=== PATIENT | female | born 1975 | race Caucasian/White ===

== ENCOUNTER → 2020-10-03 13:18 | Outpatient (BNVA) | payer OTHER, SELFPAY | PROVIDERS: PCP Internal Medicine; Referring Provider Internal Medicine; Visit Provider Internal Medicine | DX: I51.7 Cardiomegaly (principal); R00.0 Tachycardia, unspecified | CPT/HCPCS: 99202 ==

== ENCOUNTER → 2020-10-18 09:44 | Outpatient (REF) | payer OTHER, SELFPAY ==
--- NOTE | 2020-10-18 09:48 | CA_ITS ---
Transthoracic Echocardiogram Patient (Last, First, Middle): Ness Gomez, Gender: Female Date of : 1975 Age: 45 Procedure Date: 10/18/2020 Procedure Type: Transthoracic Echocardiogram Location: OP Height: 165.1 cm Weight: 72.58 kg BSA: 1.80 m2 Heart Rate: bpm BP: 125 / 85 mmHg Professor Of Biostatistics: ARMIDA Referring MD: Miguel Angel Moreira MD Symptoms: I51.7 - Cardiomegaly Study Quality: Good ECG Rhythm: Sinus Conclusions: - The left ventricular systolic function is normal. The visually estimated ejection fraction is between 60-65%. - No obvious valvular pathology seen on this study. Findings Left Ventricle Normal left ventricular cavity size. There is normal left ventricular wall thickness. The left ventricular systolic function is normal. The visually estimated ejection fraction is between 60-65%. There is no evidence of regional wall motion abnormalities. Diastolic function is normal for age. Right Ventricle Normal right ventricular cavity size and systolic function. Atria The left atrium is normal in size. The right atrium is normal in size. Aortic Valve There is a normal trileaflet aortic valve. There is no aortic valve stenosis. There is trace (trivial) aortic valve regurgitation. Mitral Valve The mitral valve appears normal. There is trace mitral valve regurgitation. There is no mitral valve stenosis. Pulmonic Valve The pulmonic valve was not well visualized. Tricuspid Valve Normal tricuspid valve structure. There is trace tricuspid valve regurgitation. The pulmonary artery systolic pressure is normal. Great Vessels The aortic annulus, sinuses of valsalva, and asc aorta are normal in size. Venous The inferior vena cava is normal in size and collapses greater than 50% with inspiration. Pericardium/Pleural There is no evidence of pericardial effusion. Prior Study Comparison No prior study available for comparison. Recommendations, Care & Conclusions No obvious valvular pathology seen on this study. Measurements M-Mode Liner Measurements Normals - Women/Men IVSd: 1.04 0.6-0.9/0.6-1.0 cm LVIDd: 4.58 3.9-5.3/4.2-5.9 cm LVIDd Index: 2.54 1.9-3.2 cm/m2 LVIDs: 2.65 2.0-3.8 cm LVPWd: 1.07 0.6-0.9/0.6-1.0 cm LV Mass: 211.48 67-162/88-224g LV Mass Index: 117.49 43-95/49-115 g/m2 M-Mode Volumes LV EDV: 96.30 LV ESV: 25.80 2D Linear Measurements IVSd: 0.82 0.6-0.9/0.6-1.0 cm LVIDd: 3.93 3.9-5.3/4.2-5.9 cm LVIDd Index: 2.18 2.4-3.2/2.2-3.1 cm/m2 LVIDs: 2.52 2.0-3.6 cm LVPWd: 0.79 0.7-1.1 cm Ao Root: 2.90 2.1-3.5 cm LA Diam: 2.80 2.7-3.8/3.0-4.0 cm LAIDs Index: 1.56 1.5-2.3 cm/m2 LV Mass: 113.61 67-162/88-224 g LV Mass Index: 63.12 43-95/49-115 g/m2 LVOT Diam: 2.00 3.0+(-)1.3 cm 2D Systolic Function EF 4C: 67.30 >55% EF 2C: 63.40 >55% EF BiP: 66.00 >55% M-Mode Systolic Function FS: 42.10 27-47/25-43% LVEF: 73.20 >55% Mitral Valve MV Pk E: 0.74 MV PK A: 0.68 MV Decel Time: 158.00 E/A: 1.10 E'Lateral: 13.50 E'Medial: 10.50 E/E' Med: 7.10 E/E' Lat: 5.50 PHT: 46.00 MVA PHT: 4.78 Decel [place]: 4.68 Aortic Valve AoV Pk Antonio: 1.07 AoV Pk Grad: 5.00 LVOT LVOT Pk Antonio: 0.96 LVOT Mn Antonio: 0.66 LVOT VTI: 0.23 LVOT Pk Grad: 4.00 LVOT Mn Grad: 2.00 LVOT Diam: 2.00 LVOT Area: 3.14 Diastolic Function MV Pk E: 0.74 MV Pk A: 0.68 E/A: 1.10 E'Medial: 10.50 E/E' Med: 7.10 E' Laterial: 13.50 E/E' Lat: 5.50 Tricuspid Valve TR Pk Antonio: 1.93 TR Pk Grad: 15.00 RA Press: 3.00 RVSP: 18.00 Great Vessels Aorta Ao Root-2D: 2.90 2.0-3.7 cm Ao Asc: 3.20 2.1-3.4 cm Updated in Other Vendor System with Status of Final Miguel Angel Moreira MD electronically signed on 10/20/2020 12:27:42 PM with status of Final
--- NOTE | 2020-10-18 09:48 | ECG_ITS ---
Hook-up date: 2020-10-18 10:41:00 Duration: 47:59:00 Test Indications: UNSPEC. TACHYCARDIA Medications: 422809 QRS complexes * Ventricular ectopics which represent % of total QRS comp. * Supraventricular ectopics which represent % of total QRS comp. * Paced QRS complexs which represent % of total QRS comp. VENTRICULAR ECTOPY * Isolated * Bigeminal Cycles * Couplets * Runs * Beats in Runs * Beats LONGEST at * BPM at :: -- * Beats FASTEST at * BPM at :: -- SUPRAVENTRICULAR ECTOPY * Isolated * Couplets * Runs * Beats in Runs * Beats LONGEST at * BPM at :: -- * Beats FASTEST at * BPM at :: -- HEART RATES 53 MIN at 22:44:22 2020-10-19 74 AVG 136 MAX at 11:45:39 2020-10-18 LONGEST RR 1.2240 secs at 00:36:35 2020-10-20 S-T LEVELS Channel 1 - 128 mm at 10:41:00 2020-10-18 - 128 mm at 10:41:00 2020-10-18 Channel 2 - 128 mm at 10:41:00 2020-10-18 - 128 mm at 10:41:00 2020-10-18 Channel 3 - 128 mm at 03:00:01 -- - 128 mm at 03:00:01 Basic rhythm Normal sinus rhythm No long pause or profound bradycardia No dangerous dysrhythm periods No diary submitted Referred By: Miguel Angel Moreira Overread By: BENTON TONG MD
== END ==
LOC: HO.CARD 09:44
PROVIDERS: Visit Provider Internal Medicine
DX: I51.7 Cardiomegaly (principal); R00.0 Tachycardia, unspecified
CPT/HCPCS: 93225; 93226; 93306

== ENCOUNTER → 2020-11-06 13:24 | Outpatient (BNVA) | payer OTHER, SELFPAY | PROVIDERS: PCP Internal Medicine; Referring Provider Internal Medicine; Visit Provider Internal Medicine | DX: Z76.89 Persons encountering health services in other specified circumstances (principal) ==

== ENCOUNTER 2021-03-08 16:53 | Emergency (ER) | payer OTHER, SELFPAY ==
[2021-03-08 17:10] VITALS: BP 125/76; PULSE 87; RESP 16; TEMP 36.8; O2SAT 98; BMI 25.7
[2021-03-08 17:47] LABS: Glucose Urine UA NEG (NEG); Leukocyte Esterase Urine TRACE (NEG); Nitrite Urine NEG (NEG); Specific Gravity - Urine 1.025 (1.005-1.025); UACC Culture Trigger YES; Urine Blood 3+ (NEG); Urine Ketones NEG (NEG); Urine Protein 1+ MG/DL (NEG-TRACE)
[2021-03-08 17:52] LABS: Appearance Urine CLOUDY; Color Urine RED
[2021-03-08 17:54] LABS: UPreg QC Valid YES; Urine Pregnancy NEGATIVE (NEGATIVE)
[2021-03-08 18:07] LABS: Squamous Epithelial Cell Urine TRACE /LPF
[2021-03-08 18:08] LABS: Bacteria Urine TRACE /LPF
[2021-03-08 18:40] LABS: MANUAL DIFF FLAG NO
[2021-03-08 18:41] LABS: Basophils Percent Auto 0.6 % (0-2); Eosinophils Absolute Auto 0.3 X10*3/uL (0.0-0.4); Eosinophils Percent Auto 4.8 % (0-4); Hematocrit 36.8 % (37-47); Hemoglobin 12.6 g/dl (12.0-16.0); Imm Gran Abs Auto 0.01 X10*3/uL (0.00-0.03); Imm Gran Pct Auto 0.2 % (0.0-0.4); Lymphocytes Absolute Auto 1.7 X10*3/uL (1.2-4.9); Lymphocytes Percent Auto 25.1 % (20-40); Mean Corpuscular HGB Conc 34.2 g/dl (31.0-35.0); Mean Corpuscular Hemoglobin 31.1 pg (27.0-33.0); Mean Corpuscular Volume 90.9 fL (80-98); Mean Platelet Volume 9.1 fL (9.4-12.3); Monocytes Absolute Auto 0.6 X10*3/uL (0.1-1.2); Monocytes Percent Auto 8.6 % (2-11); Neutrophils Percent Auto 60.7 % (45-73); Platelet Count 248 X10*3/uL (160-400); Red Blood Count 4.05 X10*6/uL (4.20-5.50); Red Cell Distribution Width 12.1 % (11.0-16.0); White Blood Count 6.7 X10*3/uL (4.8-10.8)
[2021-03-08 19:07] LABS: Anion Gap 12 (12-20); Blood Urea Nitrogen 16 mg/dL (9-16); Calcium 8.9 mg/dL (8.4-10.2); Carbon Dioxide 25 mmol/L (22-29); Chloride 108 mmol/L (96-108); Creatinine Clr Calc Pharmacy 91.5; Estimated Glomerular Filt Rate > 60; Glucose Random 93 mg/dL (60-115); Potassium 3.6 mmol/L (3.3-5.1); Sodium 141 mmol/L (135-145)
[2021-03-08 19:40] VITALS: BP 143/90; PULSE 94; RESP 16; TEMP 36.9; O2SAT 98
--- NOTE | 2021-03-08 19:46 | ED.WEAKNESS ---
HPI - Weakness General Chief complaint: Weakness Stated complaint: CP,CHILLS, Time Seen by Provider: 03/08/21 19:46 Source: patient Mode of arrival: ambulatory Limitations: no limitations History of Present Illness HPI Narrative: Patient with multiple complaints body aches sore throat headache nausea vomiting for last 9 days had a root canal at that time says that when she was in [place] dated the blood culture showed Gram-positive bacilli likely contamination no fever on arrival patient seems a very anxious asking for repeating blood culture had COVID testing multiple times negative no shortness of breath or cough patient very anxious on arrival with multiple complaints keeps changing her complaints Related Data Home Medications Medication Instructions Recorded Confirmed lurasidone 40 mg tablet 40 mg PO DAILY 10/03/20 11/06/20 Allergies Allergy/AdvReac Type Severity Reaction Status Date / Time No Known Allergies Allergy Verified 10/03/20 13:38 Review of Systems Review of Systems: Constitutional : No Weight loss+ Fever, + Chills ENT/Mouth : No sore throat, No Rhinorrhea Eyes: No Eye Pain, No Swelling Cardiovascular : No Chest Pain, no palpitations Respiratory : No Cough, No Sputum, no shortness of breath Gastrointestinal : + Nausea, No Vomiting, No Diarrhea, No abdominal Pain, no black stools Genitourinary : No Dysuria, No Urinary Frequency Musculoskeletal : No joint pain, + Myalgias, No Joint Swelling Skin : No Skin Lesions, No rash Neuro : No Weakness, No Numbness, No Dizziness, No Headache Psych : No Anxiety/Panic, No Depression Heme/Lymph: No Bruising, No Lymphadenopathy Endocrine : No Polyuria, No Polydipsia All other systems reviewed and are negative [facility] Past Medical History Surgical History History of pilonidal cyst (~2010) History of removal of skin mole Family History Family History Father No problems noted. Mother No problems noted. Other Hypertension Social History Social History Alcohol intake: never Smoking Status: Never smoker Advance Directives: No Advance Directives Information Provided: No Physical Exam Vital Signs: Vital Signs: Last Vital Signs Temp 98.4 F 03/08/21 19:40 Pulse 90 03/08/21 20:02 Resp 14 03/08/21 20:02 BP 117/77 03/08/21 20:02 Pulse Ox 98 03/08/21 20:02 Body Mass Index 25.7 Appearance: Alert. Oriented X3. No acute distress. Eyes: Pupils equal, round and reactive to light. ENT: Pharynx normal. Neck: Normal inspection. Neck supple. CVS: Normal heart rate and rhythm. Pulses normal. Respiratory: No respiratory distress. Breath sounds normal. Abdomen: Soft and nontender. Bowel sounds are present, no mass palpable, no CVA tenderness Skin: Skin warm and dry. Normal skin color. Normal skin turgor. Extremities: No lower extremity edema. Neuro: Oriented X 3. No motor deficit. No sensory deficit. MDM - Weakness MDM Narrative Medical decision making narrative: Patient with multiple complaints clinically anxiety labs are normal we will do blood culture as patient is saying that she had positive blood culture which seems to be contamination. Patient's lactic acid is normal and other parameters were also normal Medical Records Attestation: I reviewed the patient's medical records. Lab Data Attestation: I reviewed the patient's lab results. Result diagrams: 03/08/21 18:34 03/08/21 18:34 Labs: Lab Results 03/08/21 03/08/21 03/08/21 Range/Units 17:34 17:34 18:34 WBC 6.7 (4.8-10.8) X10*3/uL RBC 4.05 L (4.20-5.50) X10*6/uL Hgb 12.6 (12.0-16.0) g/dl Hct 36.8 L (37-47) % MCV 90.9 (80-98) fL MCH 31.1 (27.0-33.0) pg MCHC 34.2 (31.0-35.0) g/dl RDW 12.1 (11.0-16.0) % Plt Count 248 (160-400) X10*3/uL MPV 9.1 L (9.4-12.3) fL Immature Gran % (Auto) 0.2 (0.0-0.4) % Neut % (Auto) 60.7 (45-73) % Lymph % (Auto) 25.1 (20-40) % [place] % (Auto) 8.6 (2-11) % Eos % (Auto) 4.8 H (0-4) % Baso % (Auto) 0.6 (0-2) % Lymph # (Auto) 1.7 (1.2-4.9) X10*3/uL [place] # (Auto) 0.6 (0.1-1.2) X10*3/uL Eos # (Auto) 0.3 (0.0-0.4) X10*3/uL Baso # (Auto) 0.0 (0.0-0.2) X10*3/uL Abs Immat Gran (auto) 0.01 (0.00-0.03) X10*3/uL Absolute Neuts (auto) 4.0 (2.0-8.3) X10*3/uL Absolute Nucleated RBC 0.000 (0.0-0.012) X10*3/uL Nucleated RBC % (auto) 0.0 (0.0-0.2) /100WBC Sodium (135-145) mmol/L Potassium (3.3-5.1) mmol/L Chloride (96-108) mmol/L Carbon Dioxide (22-29) mmol/L Anion Gap (12-20) BUN (9-16) mg/dL Creatinine (0.5-1.4) mg/dL Estim Creat Clear Calc Estimated GFR Random Glucose (60-115) mg/dL Lactic Acid (0.5-2.0) mmol/L Calcium (8.4-10.2) mg/dL Urine Color RED Urine Appearance CLOUDY Urine pH 6.0 (5.0-8.0) Ur Specific [place] 1.025 (1.005-1.025) Urine Protein 1+ H (NEG-TRACE) MG/DL Urine Glucose (UA) NEG (NEG) MG/DL Urine Ketones NEG (NEG) MG/DL Urine Blood 3+ H (NEG) Urine Nitrite NEG (NEG) Ur Leukocyte Esterase TRACE H (NEG) Urine RBC 76-150 H (0) /HPF Urine WBC 1-4 (0-4) /HPF Ur Squamous Epith Cells TRACE /LPF Urine Bacteria TRACE /LPF Urine Test NEGATIVE (NEGATIVE) 03/08/21 03/08/21 Range/Units 18:34 20:11 WBC (4.8-10.8) X10*3/uL RBC (4.20-5.50) X10*6/uL Hgb (12.0-16.0) g/dl Hct (37-47) % MCV (80-98) fL MCH (27.0-33.0) pg MCHC (31.0-35.0) g/dl RDW (11.0-16.0) % Plt Count (160-400) X10*3/uL MPV (9.4-12.3) fL Immature Gran % (Auto) (0.0-0.4) % Neut % (Auto) (45-73) % Lymph % (Auto) (20-40) % [place] % (Auto) (2-11) % Eos % (Auto) (0-4) % Baso % (Auto) (0-2) % Lymph # (Auto) (1.2-4.9) X10*3/uL [place] # (Auto) (0.1-1.2) X10*3/uL Eos # (Auto) (0.0-0.4) X10*3/uL Baso # (Auto) (0.0-0.2) X10*3/uL Abs Immat Gran (auto) (0.00-0.03) X10*3/uL Absolute Neuts (auto) (2.0-8.3) X10*3/uL Absolute Nucleated RBC (0.0-0.012) X10*3/uL Nucleated RBC % (auto) (0.0-0.2) /100WBC Sodium 141 (135-145) mmol/L Potassium 3.6 (3.3-5.1) mmol/L Chloride 108 (96-108) mmol/L Carbon Dioxide 25 (22-29) mmol/L Anion Gap 12 (12-20) BUN 16 (9-16) mg/dL Creatinine 0.78 (0.5-1.4) mg/dL Estim Creat Clear Calc 91.5 Estimated GFR > 60 Random Glucose 93 (60-115) mg/dL Lactic Acid 0.8 (0.5-2.0) mmol/L Calcium 8.9 (8.4-10.2) mg/dL Urine Color Urine Appearance Urine pH (5.0-8.0) Ur Specific [place] (1.005-1.025) Urine Protein (NEG-TRACE) MG/DL Urine Glucose (UA) (NEG) MG/DL Urine Ketones (NEG) MG/DL Urine Blood (NEG) Urine Nitrite (NEG) Ur Leukocyte Esterase (NEG) Urine RBC (0) /HPF Urine WBC (0-4) /HPF Ur Squamous Epith Cells /LPF Urine Bacteria /LPF Urine Test (NEGATIVE) Discharge Plan Discharge Clinical Impression: Weakness Patient Disposition: Home, Self-Care Instructions: Weakness (ED) Additional Instructions: Your blood report is normal follow-up with PCP about blood culture results Prescriptions: No Action Latuda 40 mg tablet 40 mg PO DAILY RF: 0 Interventions: ED Discharge Assessment Last Done: 03/08/21 20:59 Discharge Date/Time: 03/08/21 21:00
--- NOTE | 2021-03-08 19:47 | PC.NURSE ---
PT TO ED WITH C/O CP AFTER HAVING DENTAL PAIN. PT ARRIVES ALERT RESPIRATIONS EASY, N/L. SKIN W/D. AWAITING FOR MD'S EVAL.
[2021-03-08 20:02] VITALS: BP 117/77; PULSE 90; RESP 14; O2SAT 98
[2021-03-08 20:49] LABS: Lactic Acid 0.8 mmol/L (0.5-2.0)
== END 2021-03-08 21:00 | disposition home or self-care (01) ==
PROVIDERS: Emergency Provider Internal Medicine; PCP Nurse Practitioner Family
DX: R53.1 Weakness (principal); F41.9 Anxiety disorder, unspecified
CPT/HCPCS: 36415; 80048; 81001; 81003; 81025; 83605; 85025; 87040; 87086; 99283

== ENCOUNTER → 2021-03-12 13:52 | Outpatient (BNVA) | payer OTHER, SELFPAY | PROVIDERS: PCP Internal Medicine; Visit Provider Internal Medicine | DX: I77.810 Thoracic aortic ectasia (principal); R78.81 Bacteremia | CPT/HCPCS: 99212 ==